=== PATIENT | male | born 1990 | race Hispanic/Latino ===

== ENCOUNTER 2018-02-10 01:06 | Inpatient (IN) | payer BC ==
[2018-02-10] MEDS ORDERED: Ketorolac Tromethamine 30 MG/ML VIAL ONE (02:37)
[2018-02-10 03:09] LABS: #Lymphocytes 0.9 thou/uL (1.20-3.40); #Monocytes 0.3 thou/uL (0.11-0.59); #Neutrophils 4.2 thou/uL (1.40-6.50); %Basophils 0.6 % (0.0-1.0); %Eosinophils 0.3 % (0.0-10.0); %Lymphocytes 17.3 % (21.0-51.0); %Monocytes 5.3 % (0.0-10.0); %Neutrophils 76.5 % (42.0-75.0); Hemoglobin 12.1 g/dL (14.0-18.0); Mean Corpuscular HGB CONC 34.5 g/dL (32.0-36.0); Mean Corpuscular Hemoglobin 28.5 pg (27.0-31.0); Mean Corpuscular Volume 82.7 fL (78.0-98.0); Platelet Count 324 thou/uL (130-400); Red Blood Cell (RBC) Count 4.24 mill/uL (4.70-6.10); White Blood Cell (WBC) Count 5.4 thou/uL (4.8-10.8)
[2018-02-10] MEDS ORDERED: cefTRIAXone\\ROCEPHIN 2 GM VIAL ONE (03:19)
[2018-02-10] MEDS ORDERED: Sodium Chloride 0.9% 1,000 ML IV SCH (05:57)
[2018-02-10] MEDS ORDERED: Ondansetron PF 4 MG/2 ML Vial IVP PRN ×2 (05:57→07:16)
[2018-02-10] MEDS ORDERED: Acetaminophen 325 MG TAB PO PRN (05:57)
[2018-02-10] MEDS ORDERED: Ondansetron ODT 4 MG TAB SL PRN (05:57)
[2018-02-10] MEDS ORDERED: Zolpidem Tartrate 5 MG TAB PO PRN (07:16)
[2018-02-10] MEDS ORDERED: Bisacodyl 5 MG TAB PO PRN (07:16)
[2018-02-10] MEDS ORDERED: Loperamide HCl 2 MG CAP PO PRN (07:16)
[2018-02-10] MEDS ORDERED: Sodium Chloride 0.65% Nasal 44 ML BOT EA NARE PRN (07:16)
[2018-02-10] MEDS ORDERED: Calcium Carbonate 500 MG ChewTAB PO PRN (07:16)
[2018-02-10] MEDS ORDERED: HYDROcodone/Acetaminophen 5/325 mg Tablet PO PRN (07:16)
[2018-02-10] MEDS ORDERED: Diabetic Tussin 200 MG/10 ML UDCUP PO PRN (07:16)
[2018-02-10] MEDS ORDERED: Artificial Tear Sol 15 ML BOT EA EYE PRN (07:16)
[2018-02-10] MEDS ORDERED: Senokot S 8.6-50 MG TAB PO PRN (07:16)
[2018-02-10] MEDS ORDERED: Eucerin (Mineral Oil/Petrolatum,White) 30 gm Jar TOP PRN (07:16)
[2018-02-10] MEDS ORDERED: Cepastat Lozenges 1 LOZ PO PRN (07:16)
[2018-02-10] MEDS ORDERED: Loratadine 10 MG TAB PO PRN (07:16)
[2018-02-10] MEDS ORDERED: Ondansetron ODT 4 MG TAB PO PRN (07:16)
[2018-02-10] MEDS ORDERED: Bisacodyl 10 MG SUPP PR PRN (07:16)
[2018-02-10] MEDS ORDERED: hydrALAZINE 20 MG/ML VIAL SLOW IVP PRN (07:16)
[2018-02-10] MEDS ORDERED: PHARMACY TO DOSE VANCOMYCIN IVPB PRN (07:18)
[2018-02-10] MEDS: guaiFENesin ER 600 MG TAB PO SCH ×2 (08:34→20:48)
[2018-02-10] MEDS: Sodium Chloride 0.9% 1,000 ML IV SCH ×2 (08:41→16:02)
[2018-02-10 08:52] LABS: Anion Gap 15 mmol/L (10-20); BUN (Urea Nitrogen) 6 mg/dL (8.9-20.6); Calc. Creatinine Clearance 0 mL/min (70-130); Calcium 8.5 mg/dL (7.8-10.44); Carbon Dioxide 22 mmol/L (22-29); Chloride 106 mmol/L (98-107); Estimated GFR-MDRD Greater than 90; Glucose 158 mg/dL (70-105); Potassium 3.6 mmol/L (3.5-5.1); Sodium 139 mmol/L (136-145)
[2018-02-10 08:57] VITALS: BMI 47.0
[2018-02-10] MEDS ORDERED: Dextrose 50% Abboject 50 ML SYRINGE SLOW IVP PRN (09:50)
[2018-02-10] MEDS ORDERED: Dextrose 5% in Water 1,000 ML IV PRN (09:50)
[2018-02-10] MEDS: Acetaminophen 325 MG TAB PO PRN ×3 (09:56→19:07)
[2018-02-10] MEDS: Enoxaparin Sodium 40 MG/0.4 ML SYRINGE SC SCH (09:57)
[2018-02-10] MEDS: Famotidine 20 MG TAB PO SCH ×2 (09:57→20:48)
--- NOTE | 2018-02-10 10:06 | RAD ---
CHEST 2 VIEWS: HISTORY: Fever. COMPARISON: None. FINDINGS: There is a right basilar airspace opacity. Atelectasis left lung base. No pneumothorax. IMPRESSION: Right lower lobe pneumonia with a layering effusion. Followup after treatment recommended. POS: [facility]
--- NOTE | 2018-02-10 10:27 | HP ---
PRIMARY CARE PHYSICIAN: Dr. Jd Burden. REASON FOR ADMISSION: Post-influenza pneumonia. HISTORY OF PRESENT ILLNESS: A 27-year-old male who has underlying history of morbid obesity, hyperte nsion, dyslipidemia, diabetes, who presented to the emergency room last night with complaint of high grade fever, chills, body ache, chest congestion. The patient reports that last week on Monday, he was in [place], at that time, he started feeling sick. Initially, his symptom was upper respira tory in nature. His symptoms, he was controlling with [id number] medication, but he was not fe eling any better and that is why he went to local urgent care on Monday. They checked his flu scree n, but the patient does not have any complete clue about result, but he was given Tamiflu. The patie nt was taking medication as prescribed, but he was not feeling better and he was having high grade fe sydnie and chills. He was having chest congestion. Because of cough, he was having headache. Because of cough, he was having chest pain and back pain. He was also feeling very weak and tired and that i s why finally he decided last night to come to the emergency room. In the emergency room, he was afe brile. He appeared sick. His chest x-ray showed infiltration. The patient was given broad spectrum antibiotic therapy with vancomycin and Rocephin as well as IV fluid, Toradol 30 mg was given. Subse quently, the patient was admitted as a full admission to medical floor. This morning when I saw at that time, the patient was having fever of 101.4. He appeared sick. He w as tachycardic. He was having cough with scant amount of sputum. He did not have any hemoptysis. H e denies any lower extremity edema, calf tenderness, pleurisy. He denies any orthopnea, PND. He den ies any similar illness in the past. He denies any flu vaccination this year. He never had this typ e of problem in past. He denies any chronic lung condition. REVIEW OF SYSTEMS: The following complete review of systems was negative, unless otherwise mentioned in the HPI or below: Constitutional: Weight loss or gain, ability to conduct usual activities. Skin: Rash, itching. Eyes: Double vision, pain. ENT/Mouth: Nose bleeding, neck stiffness, pain, tenderness. Cardiovascular: Palpitations, dyspnea on exertion, orthopnea. Respiratory: Shortness of breath, wheezing, cough, hemoptysis, fever or night sweats. Gastrointestinal: Poor appetite, abdominal pain, heartburn, nausea, vomiting, constipation, or diarr hea. Genitourinary: Urgency, frequency, dysuria, nocturia. Musculoskeletal: Pain, swelling. Neurologic/Psychiatric: Anxiety, depression. Allergy/Immunologic: Skin rash, bleeding tendency. Please see my HPI for pertinent positive and negative. All other review of systems reviewed and nega tive except as mentioned in the HPI. PAST MEDICAL HISTORY: Morbid obesity with body mass index 47, diabetes type 2, hypertension, dyslipi demia. PAST SURGICAL HISTORY: Appendicectomy, tonsillectomy. PAST PSYCHIATRIC HISTORY: Reviewed and negative. SOCIAL HISTORY: The patient drinks alcohol occasionally and socially. He denies any smoking. He de nies any other illicit drug abuse. He is working in [employer]. FAMILY HISTORY: Patient denies any family history of coronary artery disease, stroke or cancer. EMERGENCY ROOM COURSE: Patient was given vancomycin, Rocephin, IV fluid, and Toradol. ALLERGIES: No known drug allergy. CURRENT HOME MEDICATIONS: As per emergency room, the patient is on Tamiflu 75 mg twice daily, metfor min 500 mg p.o. b.i.d., pravastatin 10 mg p.o. daily, Actos 15 mg p.o. daily, lisinopril 10 mg p.o. d aily, trazodone 50 mg p.o. at bedtime. All above-mentioned medication has not been verified because this is based on his recall and ER record, but patient does not have any medication with him and that is why we will verify it later on. PHYSICAL EXAMINATION: VITAL SIGNS: Temperature of 101.4, blood pressure 136/83, pulse 104, respiratory rate 20, saturation 96% on 2 liters oxygen, weight 147 kilograms. GENERAL: Patient is currently alert, awake, appears ill appearing. HEENT: Head: Normocephalic, atraumatic. Eyes: Pupils round, reactive to light. No nystagmus. Ex traocular muscle movement is intact. NECK: Supple, no JVD, no thyromegaly, no carotid bruit. LUNGS: Because of morbid obesity, difficult to assess any rales or wheezing, but coarse breath sound noted. No accessory muscles of respiration in use. No gross rhonchi heard at this point. CARDIAC: S1, S2 appears regular, tachycardia, no murmur, no gallop, no rub. ABDOMEN: Morbid obesity present. Bowel sounds present, nontender, nondistended. No organomegaly, n o mass, no suprapubic tenderness. BACK: Unremarkable, no CVA tenderness. EXTREMITIES: Upper extremity: Passive movement of all joints are normal. Lower extremities: No ed martha. Good distal pulsation, no calf tenderness. SKIN: No skin rash. HEMATOLOGICAL: No lymphadenopathy. PSYCHIATRIC: Normal affect. NEUROLOGIC: Nonfocal examination. SIGNIFICANT LABORATORY DATA: Chest x-ray showing multilobar infiltration based on my review. CBC: WBC 5.4, hemoglobin 12.1, platelets 324. BMP shows sodium 139, potassium 3.6, BUN 6, creatinin e 0.60, glucose 158, calcium 8.5. CK 176. Lactic acid 1.3. ASSESSMENT AND PLAN: 1. Community-acquired pneumonia, suspecting Streptococcus, underlying Staph infection cannot be enti rely excluded given recent flu-like illness. At this point, we will check respiratory virus panel. We will continue with broad spectrum antibiotic therapy with Rocephin 1 gram q.24 hours, Levaquin 750 mg daily, and vancomycin as per pharmacy adjusted dose, Mucinex 600 mg twice daily and DuoNeb therap y q.6 hourly p.r.n. and symptomatic treatment. 2. Sepsis. The patient meets sepsis with systemic inflammatory response syndrome criteria with high grade fever, tachycardia, tachypnea, though his CBC, BMP appears normal, but patient has underlying sepsis secondary to pneumonia. The patient is already on broad spectrum antibiotic therapy. We will continue IV fluid NS at 125 mL per hour. 3. Morbid obesity with a BMI of 47. Dietary education given, weight loss education given. Healthy lifestyle measures discussed with the patient. 4. Diabetes type 2. Once we verify the patient's home medication, then we will start patient's home medication. We will provide diabetic diet and insulin as per sliding scale per protocol. 5. Hypertension. Currently, the patient's blood pressure runs low, so we will hold on antihypertens jerry medication and we will verify his home medication. 6. Dyslipidemia. After verification of his home medication, we will resume. 7. Deep venous thrombosis prophylaxis. Lovenox 40 mg subcu daily. 8. Gastrointestinal prophylaxis, Pepcid 20 mg p.o. b.i.d. 9. Code status: The patient is FULL CODE. The patient is making his own decision. Disposition plan based on clinical course. We are expecting patient's stay in hospital more than 2 m idnights. Plan of care discussed with the patient and family member at bedside.
[2018-02-10] MEDS: HumaLOG 300 UNITS/3 ML VIAL SC PRN ×3 (12:47→21:06)
[2018-02-10] MEDS ORDERED: traZODone HCl 50 MG TAB PO PRN (15:44)
[2018-02-10] MEDS: metFORMIN 500 MG TAB PO SCH (20:48)
[2018-02-10] MEDS: Pravastatin Sodium 40 MG TAB PO SCH (20:50)
[2018-02-11] MEDS: cefTRIAXone\\ROCEPHIN 1 GM in Sodium Chloride 0.9% 100 ML IVPB SCH (02:00)
[2018-02-11] MEDS: Sodium Chloride 0.9% 1,000 ML IV SCH ×2 (02:00→07:12)
[2018-02-11] MEDS: HumaLOG 300 UNITS/3 ML VIAL SC PRN ×4 (04:59→20:16)
[2018-02-11 05:31] LABS: Anion Gap 15 mmol/L (10-20); BUN (Urea Nitrogen) 7 mg/dL (8.9-20.6); Calc. Creatinine Clearance 366 mL/min (70-130); Calcium 8.8 mg/dL (7.8-10.44); Carbon Dioxide 19 mmol/L (22-29); Chloride 105 mmol/L (98-107); Estimated GFR-MDRD Greater than 90; Glucose 216 mg/dL (70-105); Potassium 4.1 mmol/L (3.5-5.1); Sodium 135 mmol/L (136-145)
[2018-02-11 06:31] LABS: Band 9 % (5-11); Lymphocytes 14 % (21-51); MDiff Complete? YES; Mean Corpuscular HGB CONC 33.4 g/dL (32.0-36.0); Mean Corpuscular Hemoglobin 28.5 pg (27.0-31.0); Mean Corpuscular Volume 85.2 fL (78.0-98.0); Mean Platelet Volume 9.2 fL (7.4-10.4); Monocytes 8 % (0-10); Neutrophil 68 % (42-75); PLT Morphology Comment Appears Adequate; Platelet Count 194 thou/uL (130-400); RBC Distribution Width 13.3 % (11.5-14.5); Red Blood Cell (RBC) Count 4.21 mill/uL (4.70-6.10); White Blood Cell (WBC) Count 5.3 thou/uL (4.8-10.8)
[2018-02-11] MEDS: Lisinopril 10 MG TAB PO SCH (08:10)
[2018-02-11] MEDS: Pioglitazone HCl 45 MG TAB PO SCH (08:10)
[2018-02-11] MEDS: Famotidine 20 MG TAB PO SCH ×2 (08:10→20:14)
[2018-02-11] MEDS: guaiFENesin ER 600 MG TAB PO SCH ×2 (08:10→20:15)
[2018-02-11] MEDS: Enoxaparin Sodium 40 MG/0.4 ML SYRINGE SC SCH (08:10)
[2018-02-11] MEDS: metFORMIN 500 MG TAB PO SCH ×2 (08:10→20:15)
[2018-02-11 08:40] LABS: ALT (SGPT) 41 U/L (8-55); AST (SGOT) 30 U/L (5-34); Albumin 3.4 g/dL (3.5-5.0); Alkaline Phosphatase 128 U/L (40-150); Bilirubin, Direct 0.1 mg/dL (0.1-0.3); Bilirubin, Total 0.3 mg/dL (0.2-1.2); Protein, Total 7.1 g/dL (6.0-8.3)
--- NOTE | 2018-02-11 10:43 | PDOC.PN ---
- Subjective Encounter Start Date: 02/11/18 Encounter Start Time: 09:30 -: old records requested/rev has cough, less dyspnea, fever is now improving Patient seen and examined. No new complaints. No overnight events - Objective Resuscitation Status: Resuscitation Status FULL:Full Resuscitation MAR Reviewed: Yes Vital Signs & Weight: Vital Signs (12 hours) Temp Pulse Resp BP BP Pulse Ox 02/11/18 08:10 125/82 02/11/18 07:17 98.6 F 88 16 125/82 95 02/11/18 04:00 97.8 F 74 18 123/80 95 Weight Weight 308 lb 14.4 oz Result Diagrams: 02/11/18 04:17 02/11/18 04:17 Additional Labs: Accuchecks 02/11/18 02/10/18 02/10/18 04:58 20:48 16:45 POC Glucose 213 H 285 H 179 H 02/10/18 02/10/18 14:44 11:21 POC Glucose 147 H 270 H Phys Exam - Physical Examination Constitutional: NAD HEENT: PERRLA, moist MMs, sclera anicteric Neck: no JVD, supple Respiratory: no wheezing, no rales, no rhonchi Cardiovascular: RRR, no significant murmur, no rub Gastrointestinal: soft, non-tender, no distention, positive bowel sounds morbid obesity limiting exam Musculoskeletal: no edema, pulses present Neurological: non-focal, normal sensation, moves all 4 limbs Lymphatic: no nodes Psychiatric: normal affect, A&O x 3 Skin: no rash, normal turgor Dx/Plan (1) Adenovirus infection Status: Acute (2) Community acquired bacterial pneumonia Code(s): J15.9 - UNSPECIFIED BACTERIAL PNEUMONIA Status: Acute Comment: post viral, suspecting strep pneumo, vs GPC (3) Sepsis Code(s): A41.9 - SEPSIS, UNSPECIFIED ORGANISM Status: Acute (4) Diabetes type 2, controlled Code(s): E11.9 - TYPE 2 DIABETES MELLITUS WITHOUT COMPLICATIONS Status: Chronic (5) Dyslipidemia Code(s): E78.5 - HYPERLIPIDEMIA, UNSPECIFIED Status: Chronic (6) Hypertension Code(s): I10 - ESSENTIAL (PRIMARY) HYPERTENSION Status: Chronic (7) Morbid obesity with BMI of 45.0-49.9, adult Code(s): E66.01 - MORBID (SEVERE) OBESITY DUE TO EXCESS CALORIES; Z68.42 - BODY MASS INDEX (BMI) 45.0-49.9, ADULT Status: Chronic - Plan cont current plan of care, plan discussed w/ family, continue antibiotics * today will continue same broad spectrum antibiotic, if stable by tomorrow then will consider narrow down antibiotic spectrum * medication reviewed as below * symptomatic treatment * follow culture * reduce IVF and then DC later today * ambulate as tolerated. Review of Systems - Review of Systems Constitutional: negative: fever, chills, sweats, weakness, malaise, other Eyes: negative: Pain, Vision Change, Conjunctivae Inflammation, Eyelid Inflammation, Redness, Other ENT: negative: Ear Pain, Ear Discharge, Nose Pain, Nose Discharge, Nose Congestion, Mouth Pain, Mouth Swelling, Throat Pain, Throat Swelling, Other Respiratory: Cough, Shortness of Breath, Sputum. negative: Dry, Hemoptysis, SOB with Excertion, Pleuritic Pain, Wheezing Cardiovascular: negative: chest pain, palpitations, orthopnea, paroxysmal nocturnal dyspnea, edema, light headedness, other Gastrointestinal: negative: Nausea, Vomiting, Abdominal Pain, Diarrhea, Constipation, Melena, Hematochezia, Other Genitourinary: negative: Dysuria, Frequency, Incontinence, Hematuria, Retention , Other Musculoskeletal: negative: Neck Pain, Shoulder Pain, Arm Pain, Back Pain, Hand Pain, Leg Pain, Foot Pain, Other Skin: negative: Rash, Lesions, Adarsh, Bruising, Other - Medications/Allergies Allergies/Adverse Reactions: Allergies Allergy/AdvReac Type Severity Reaction Status Date / Time No Known Drug Allergies Allergy Verified 02/10/18 05:55 Medications: Current Medications Acetaminophen (Tylenol) 650 mg PO Q4H PRN PRN Reason: Headache/Fever/Mild Pain (1-3) Last Admin: 02/10/18 19:07 Dose: 650 mg Hydrocodone Bitart/Acetaminophen ([place] 5/325) 1 tab PO Q4H PRN PRN Reason: Moderate Pain (4-6) Albuterol/Ipratropium (Duoneb) 3 ml NEB [id number] PRN PRN Reason: SOB &/or Wheezing Last Admin: 02/10/18 21:31 Dose: 3 ml Artificial Tears (Tears Renewed 15ml Bottle) 2 drop EA EYE PRN PRN PRN Reason: Dry Eyes Bisacodyl (Dulcolax) 10 mg PO DAILYPRN PRN PRN Reason: Constipation Bisacodyl (Dulcolax) 10 mg GA DAILYPRN PRN PRN Reason: Constipation Calcium Carbonate (Tums) 1,000 mg PO Q4H PRN PRN Reason: Heartburn or Indigestion Dextrose/Water (Dextrose 50%) 25 gm SLOW IVP PRN PRN PRN Reason: Hypoglycemia Enoxaparin Sodium (Lovenox) 40 mg SC 0900 [facility] Last Admin: 02/11/18 08:10 Dose: 40 mg Famotidine (Pepcid) 20 mg PO BID [facility] Last Admin: 02/11/18 08:10 Dose: 20 mg Glucagon (Glucagon) 1 mg IM PRN PRN PRN Reason: Hypoglycemia Guaifenesin (Mucinex) 600 mg PO Q12HR [facility] Last Admin: 02/11/18 08:10 Dose: 600 mg Guaifenesin (Robitussin Sf) 200 mg PO Q4H PRN PRN Reason: Cough Hydralazine HCl (Apresoline) 10 mg SLOW IVP Q4H PRN PRN Reason: SBP > 180 and HR < 70 Ceftriaxone Sodium 1 gm/ (Sodium Chloride) 100 mls @ 200 mls/hr IVPB Q24HR@ 0300 [facility] Last Admin: 02/11/18 02:00 Dose: 100 mls Levofloxacin 750 mg/ Device 150 mls @ 100 mls/hr IVPB Q24HR [facility] Last Admin: 02/11/18 08:09 Dose: 150 mls Vancomycin HCl 2 gm/ Sodium (Chloride) 500 mls @ 250 mls/hr IVPB 0200,1000, 1800 [facility] Last Admin: 02/11/18 02:54 Dose: 500 mls Dextrose/Water (D5w) 1,000 mls @ 0 mls/hr IV .Q0M PRN PRN Reason: Hypoglycemia Sodium Chloride (Normal Saline 0.9%) 1,000 mls @ 75 mls/hr IV .[id number] [facility] Last Admin: 02/11/18 07:12 Dose: Not Given Insulin Human Lispro (Humalog) 0 units SC .MODERATE SLIDING SC PRN PRN Reason: Moderate Correctional Scale Last Admin: 02/11/18 04:59 Dose: 4 unit Insulin Human Lispro (Humalog) 0 units SC .BEDTIME SLIDING SC PRN PRN Reason: Bedtime Correctional Scale Last Admin: 02/10/18 21:06 Dose: 3 unit Lisinopril (Zestril) 10 mg PO DAILY [facility] Last Admin: 02/11/18 08:10 Dose: 10 mg Loperamide HCl (Imodium) 2 mg PO PRN PRN PRN Reason: Diarrhea/Loose Stools Loratadine (Claritin) 10 mg PO DAILYPRN PRN PRN Reason: Sinus Symptoms Metformin HCl (Glucophage) 1,000 mg PO BID [facility] Last Admin: 02/11/18 08:10 Dose: 1,000 mg Methylprednisolone Sodium Succinate (Solu-Medrol) 20 mg IVP Q8HR [facility] Last Admin: 02/11/18 05:20 Dose: 20 mg Mineral Oil/White Petrolatum (Eucerin Cream) 0 gm TOP BIDPRN PRN PRN Reason: Dry Skin Miscellaneous Medication (Pharmacy To Dose) 1 each IVPB PRN PRN PRN Reason: Pharmacy to dose Ondansetron HCl (Zofran Odt) 4 mg PO Q6H PRN PRN Reason: Nausea/Vomiting Ondansetron HCl (Zofran) 4 mg IVP Q6H PRN PRN Reason: Nausea/Vomiting Pioglitazone HCl (Actos) 45 mg PO DAILY [facility] Last Admin: 02/11/18 08:10 Dose: 45 mg Pravastatin Sodium (Pravachol) 60 mg PO HS [facility] Last Admin: 02/10/18 20:50 Dose: 60 mg Senna/Docusate Sodium (Senokot S) 2 tab PO BID PRN PRN Reason: Constipation Sodium Chloride (Ekron Nasal [place] 0.65%) 0 ml EA NARE QIDPRN PRN PRN Reason: Nasal Congestion Throat Lozenges (Cepastat Lozenges) 1 layla PO Q2H PRN PRN Reason: Sore Throat Trazodone HCl (Desyrel) 25 mg PO HSPRN PRN PRN Reason: Insomnia Zolpidem Tartrate (Ambien) 5 mg PO HSPRN PRN PRN Reason: Insomnia
[2018-02-11 10:50] LABS: Vancomycin, Trough 24.1 ug/mL
[2018-02-11 17:29] LABS: Vancomycin, Trough 17.1 ug/mL
[2018-02-11] MEDS: Pravastatin Sodium 40 MG TAB PO SCH (20:14)
[2018-02-12] MEDS: Sodium Chloride 0.9% 1,000 ML IV SCH (00:45)
[2018-02-12] MEDS: cefTRIAXone\\ROCEPHIN 1 GM in Sodium Chloride 0.9% 100 ML IVPB SCH (02:01)
[2018-02-12] MEDS: HumaLOG 300 UNITS/3 ML VIAL SC PRN ×2 (05:43→12:11)
[2018-02-12] MEDS ORDERED: predniSONE 20 MG TAB PO SCH (08:00)
[2018-02-12] MEDS: Pioglitazone HCl 45 MG TAB PO SCH (08:55)
[2018-02-12] MEDS: Lisinopril 10 MG TAB PO SCH (08:56)
[2018-02-12] MEDS: Famotidine 20 MG TAB PO SCH (08:56)
[2018-02-12] MEDS: guaiFENesin ER 600 MG TAB PO SCH (08:56)
[2018-02-12] MEDS: metFORMIN 500 MG TAB PO SCH (08:56)
[2018-02-12] MEDS: Enoxaparin Sodium 40 MG/0.4 ML SYRINGE SC SCH (08:57)
--- NOTE | 2018-02-12 12:13 | DIS ---
PRIMARY CARE PHYSICIAN: Dr. Jd Burden DATE OF ADMISSION: 02/10/2018 DATE OF DISCHARGE: 02/12/2018 DISCHARGE DISPOSITION: Home. PRIMARY DISCHARGE DIAGNOSES: 1. Community-acquired bacterial pneumonia, suspecting Streptococcus. 2. Adenovirus upper respiratory tract infection. 3. Sepsis. SECONDARY DISCHARGE DIAGNOSES: Morbid obesity with body mass index 47, hypertension, dyslipidemia, d iabetes type 2. PRIMARY PROCEDURE/OPERATION: None. RADIOLOGICAL INVESTIGATION: Chest x-ray showed right lower lobe pneumonia. SIGNIFICANT LABORATORY DATA: WBC 5.3, hemoglobin 12.0, platelet 194. LFTs normal. Sodium 135, crea tinine 0.59, calcium 8.8. Blood culture negative. Respiratory virus panel showed adenovirus positiv e. DISCHARGE MEDICATIONS: Levofloxacin 750 mg p.o. daily for 7 days, Mucinex 600 mg twice daily for 7 d ays, prednisone 20 mg p.o. daily for 5 days. Lisinopril 20 mg p.o. daily, metformin 1000 mg p.o. b.i .d., Actos 45 mg daily, pravastatin 80 mg p.o. at bedtime, trazodone 50 mg p.o. at bedtime p.r.n. CONTRAINDICATIONS: None. CODE STATUS: FULL CODE. INPATIENT CONSULTANTS: None. ALLERGIES: No known drug allergy. DISCHARGE PLAN: Post hospital, the patient is instructed to follow up [place] Dr[place] and patient is instructed to repeat chest x-ray upon followup visit with primary care physician t o see resolution of pneumonia. HOSPITAL COURSE: A 27-year-old male with the above-mentioned medical problem who was admitted by me. Please see my HPI for further details. The patient was having upper respiratory infection symptoms and he was trying [id number] medication without any improvement. The patient was brought to e mergency room for increasing fever, cough and shortness of breath. He was found with a right lower l obe pneumonia on x-ray. We checked virus panel and found with adenovirus infection. While in hospit al he was given vancomycin, Rocephin and Levaquin. His culture remained negative and he was afebrile while in hospital. At that point, we discontinued most of the antibiotic therapy except levofloxaci n. I have seen and examined at bedside today. The patient is feeling much better. He has a residual co ugh, but he is afebrile and he is hemodynamically stable. REVIEW OF SYSTEMS: Reviewed with him and negative. His physical examination is completely normal. All new medication prescriptions sent to his pharmacy . The patient is medically stable for discharge today.
[2018-02-12 12:51] VITALS: BP 146/103; TEMP 97.4
== END 2018-02-12 13:10 | disposition home or self-care (01) | DRG 871 ==
LOC: ERS 01:06 → T4-A 03:15
PROVIDERS: ADMIT Hospitalist; ATTEND Hospitalist
DX: A40.9 Streptococcal sepsis, unspecified (principal); J15.4 Pneumonia due to other streptococci; Z68.42 Body mass index [BMI] 45.0-49.9, adult; E66.01 Morbid (severe) obesity due to excess calories; I10 Essential (primary) hypertension; E78.5 Hyperlipidemia, unspecified; E11.9 Type 2 diabetes mellitus without complications; F32.9 Major depressive disorder, single episode, unspecified; F41.9 Anxiety disorder, unspecified; Z79.899 Other long term (current) drug therapy; Z79.84 Long term (current) use of oral hypoglycemic drugs
CPT/HCPCS: 36415; 36416; 71046; 80048; 80076; 80202; 82550; 83605; 85025; 87040; 87633; 94640; 96365; 96367; 96375; J0696; J1650; J1885; J1956; J2920; J3370; J7050; J7506; J7620

== ENCOUNTER 2018-12-21 11:19 | Outpatient (CLI) | payer BC | END 2018-12-21 11:20 | disposition home or self-care (01) | LOC: DTY/OP 11:19 | PROVIDERS: ATTEND Surgery | DX: E66.01 Morbid (severe) obesity due to excess calories (principal) | CPT/HCPCS: 97802 ==

== ENCOUNTER 2019-02-18 14:15 | Outpatient (CLI) | payer BC ==
[2019-02-18 17:10] LABS: #Basophils 0.1 thou/uL (0.0-0.2); #Eosinphils 0.1 thou/uL (0.0-0.7); #Lymphocytes 3.2 thou/uL (1.20-3.40); #Monocytes 0.9 thou/uL (0.11-0.59); #Neutrophils 8.2 thou/uL (1.40-6.50); %Basophils 1.1 % (0.0-1.0); %Eosinophils 0.5 % (0.0-10.0); %Lymphocytes 25.8 % (21.0-51.0); %Monocytes 6.9 % (0.0-10.0); %Neutrophils 65.7 % (42.0-75.0); Hemoglobin 14.2 g/dL (14.0-18.0); Mean Corpuscular HGB CONC 33.8 g/dL (32.0-36.0); Mean Corpuscular Hemoglobin 28.2 pg (27.0-31.0); Mean Corpuscular Volume 83.4 fL (78.0-98.0); Mean Platelet Volume 7.2 fL (7.4-10.4); Platelet Count 380 thou/uL (130-400); Red Blood Cell (RBC) Count 5.03 mill/uL (4.70-6.10); White Blood Cell (WBC) Count 12.5 thou/uL (4.8-10.8)
--- NOTE | 2019-02-18 17:11 | RAD ---
XR Chest Pa Lat STANDARD HISTORY: Preoperative evaluation COMPARISON: 05/07/2018 FINDINGS: The heart size is normal. The lungs are well expanded without focal areas of consolidation, pneumothorax or pleural effusions. IMPRESSION: No radiographic evidence of acute cardiopulmonary process.
[2019-02-18 17:14] LABS: Hemoglobin A1c 8.6 % (4.0-6.0)
[2019-02-18 17:45] LABS: ALT (SGPT) 31 U/L (8-55); AST (SGOT) 16 U/L (5-34); Albumin 4.6 g/dL (3.5-5.0); Alkaline Phosphatase 129 U/L (40-110); Anion Gap 14 mmol/L (10-20); BUN (Urea Nitrogen) 13 mg/dL (8.9-20.6); Bilirubin, Total 0.3 mg/dL (0.2-1.2); Calc. Creatinine Clearance 0 mL/min (70-130); Carbon Dioxide 24 mmol/L (22-29); Chloride 103 mmol/L (98-107); Estimated GFR-MDRD Greater than 90; Globulin 3.5 g/dL (2.4-3.5); Glucose 153 mg/dL (70-105); Potassium 4.2 mmol/L (3.5-5.1); Protein, Total 8.1 g/dL (6.0-8.3); Sodium 137 mmol/L (136-145)
== END 2019-02-18 14:16 | disposition home or self-care (01) ==
LOC: LABBT 14:15
PROVIDERS: ATTEND Surgery
DX: Z01.818 Encounter for other preprocedural examination (principal); E66.01 Morbid (severe) obesity due to excess calories
CPT/HCPCS: 71046; 80053; 83036; 85025; 93005; 93010

== ENCOUNTER 2019-02-18 16:15 | Inpatient (IN) | payer BC ==
[2019-02-18 16:16] VITALS: BMI 49.4
[2019-02-28] MEDS ORDERED: Heparin 5,000 UNITS/ML VIAL ONE (09:38)
[2019-02-28] MEDS ORDERED: Fentanyl 250 MCG/5 ML VIAL ONE (10:38)
[2019-02-28] MEDS ORDERED: Bupivacaine 0.25% HCL 30 ML VIAL ONE ×2 (10:42→11:13)
[2019-02-28] MEDS ORDERED: Lidocaine 1% w/Epinephrine 1:100K 20 ML VIAL ONE (10:42)
[2019-02-28] MEDS ORDERED: PROPOFOL 20 ML ONE (11:58)
[2019-02-28] MEDS ORDERED: Ondansetron HCl/PF 4 MG/2 ML Vial IVP PRN (12:03)
[2019-02-28] MEDS ORDERED: Promethazine HCl 25 MG/ML VIAL IM PRN ×2 (12:03→12:50)
[2019-02-28] MEDS ORDERED: Promethazine HCl 25 MG/ML VIAL SLOW IVP PRN (12:03)
[2019-02-28] MEDS ORDERED: Fentanyl 100 MCG/2 ML VIAL ONE (12:46)
[2019-02-28] MEDS ORDERED: diphenhydrAMINE 50 MG/ML VIAL IVP PRN ×2 (12:50→15:33)
[2019-02-28] MEDS ORDERED: diphenhydrAMINE 25 MG CAP PO PRN (12:50)
[2019-02-28] MEDS ORDERED: Ondansetron PF 4 MG/2 ML Vial IVP PRN (12:50)
[2019-02-28] MEDS ORDERED: Naloxone HCl 0.4 mg/ml Vial IV PRN (12:50)
[2019-02-28] MEDS ORDERED: diphenhydrAMINE 50 MG/ML VIAL IM PRN (12:50)
[2019-02-28] MEDS ORDERED: fentaNYL Citrate/PF 2,000 MCG in Sodium Chloride 0.9% 60 ML IV PRN (12:50)
[2019-02-28] MEDS ORDERED: Zolpidem Tartrate 5 MG TAB PO PRN (12:50)
[2019-02-28] MEDS ORDERED: Promethazine HCl 25 MG/ML VIAL ONE (12:51)
[2019-02-28] MEDS ORDERED: Communication Order-Pharmacy FS SCH (13:00)
[2019-02-28] MEDS ORDERED: Esmolol 100 MG/10 ML VIAL ONE (13:32)
[2019-02-28] MEDS ORDERED: Lidocaine 1% PF 5 ML VIAL ONE (13:32)
[2019-02-28] MEDS ORDERED: Dexamethasone 20 MG/5 ML VIAL ONE (13:32)
[2019-02-28] MEDS ORDERED: Ketorolac Tromethamine 30 MG/ML VIAL ONE (13:32)
[2019-02-28] MEDS ORDERED: Succinylcholine Chloride 20 MG/ML 10 ml SYRINGE FS ONE (13:32)
[2019-02-28] MEDS ORDERED: Ondansetron PF 4 MG/2 ML Vial ONE (13:32)
[2019-02-28] MEDS ORDERED: Glycopyrrolate 0.2 MG/ML 5 ML SYRINGE ONE (13:32)
[2019-02-28] MEDS ORDERED: PROPOFOL 200 MG/20 ML VIAL ONE (13:32)
[2019-02-28] MEDS ORDERED: Rocuronium Bromide 10 MG/ML (10ML VIAL) ONE (13:32)
[2019-02-28] MEDS ORDERED: hydrALAZINE 20 MG/ML VIAL SLOW IVP PRN (15:33)
[2019-02-28] MEDS ORDERED: HumaLOG 300 UNITS/3 ML VIAL SC PRN (15:33)
[2019-02-28] MEDS ORDERED: Dextrose 50% Abboject 50 ML SYRINGE SLOW IVP PRN (15:33)
[2019-02-28] MEDS ORDERED: Dextrose 5% in Water 1,000 ML IV PRN (15:33)
[2019-02-28] MEDS: Ondansetron PF 4 MG/2 ML Vial IVP PRN (17:02)
[2019-02-28] MEDS: Acetaminophen 1,000 MG in Premix Bag 1 BAG IVPB SCH (17:02)
[2019-02-28] MEDS: Sodium Chloride 0.9% 1,000 ML IV SCH (17:06)
--- NOTE | 2019-02-28 17:49 | OP ---
DATE OF PROCEDURE: 02/28/2019 PREOPERATIVE DIAGNOSES: 1. Morbid obesity with a body mass index of 55. 2. Diabetes mellitus. 3. Hypertension. 4. Hyperlipidemia. POSTOPERATIVE DIAGNOSES: 1. Morbid obesity with a body mass index of 55. 2. Diabetes mellitus. 3. Hypertension. 4. Hyperlipidemia. 5. Hiatal hernia. PROCEDURES PERFORMED: 1. Laparoscopic sleeve gastrectomy with Blanchard staple line reinforcements and 38-[place]at[place] bougie. 2. Laparoscopic hiatal hernia repair without fundoplication or mesh. ANESTHESIA: General. ESTIMATED BLOOD LOSS: Minimal. COMPLICATIONS: None. SPECIMENS: Stomach. FINDINGS: Normal postoperative EGD. DESCRIPTION OF PROCEDURE: The patient was taken to the operating room and laid supine on the operating room table. After general anesthetic was obtained, the arms and legs were double strapped to bariatric table. The abdomen was prepped and draped in sterile fashion. Left subcostal 5-mm Optiview trocar was placed in usual fashion without injury. High-flow pneumoperitoneum was obtained. A right subcostal 5-mm port and two 12-mm ports in the abdomen were placed under direct visualization. 5-mm port was placed at the xiphoid and Ludwin was used to raise the liver off the GE junction. Short gastrics were taken down from mid body of stomach to left shea of diaphragm. Left shea, posterior fundus, and angle of His were completely dissected, revealing a hiatal hernia. A circumferential dissection of the esophagus was then performed, pulling the fundus back into the abdominal cavity under no tension. Short gastrics were taken down to a distance of 6 cm proximal to the pylorus. A 38 bougie was brought in and its tip left in the antrum of the stomach. Multiple loads of an echelon stapling device with Blanchard staple line reinforcements were used to perform the sleeve. The first fired up at a distance 6 cm proximal to the pylorus, angled up towards the incisura. Multiple loads were then fired up along the bougie. Stomach was completely transected at the angle of His. Stomach was removed from the left abdominal incision. The posterior crura was closed using 1 Ethibond suture and the tie-knot system. The fascial defect where the stomach was removed was closed using GraNee needle and 0 Vicryl tie. There was no bleeding in the abdomen. There was no bleeding on the staple lines. EGD scope was passed through esophagus and stomach to the level of duodenum without obstruction. Ludwin retractors were removed under direct visualization without injury. All ports were removed without bleeding. Pneumoperitoneum was let down. 4-0 Monocryl and Dermabond were used to close all the skin incisions. The patient was sent to Recovery in stable condition. All instrument counts, needle counts, and lap counts were correct. Job ID: [id number]
[2019-02-28] MEDS: Lisinopril 20 MG TAB PO SCH (20:31)
[2019-02-28] MEDS: Enoxaparin Sodium 40 MG/0.4 ML SYRINGE SC SCH (20:32)
[2019-02-28] MEDS: Promethazine HCl 25 MG/ML VIAL IM PRN (20:38)
[2019-03-01] MEDS: Acetaminophen 1,000 MG in Premix Bag 1 BAG IVPB SCH ×3 (00:22→11:29)
[2019-03-01] MEDS: Sodium Chloride 0.9% 1,000 ML IV SCH ×5 (00:23→20:46)
[2019-03-01] MEDS: Ondansetron PF 4 MG/2 ML Vial IVP PRN ×3 (00:55→18:33)
[2019-03-01] MEDS: Promethazine HCl 25 MG/ML VIAL IM PRN ×2 (02:55→16:29)
[2019-03-01 06:19] LABS: #Lymphocytes 2.6 thou/uL (1.20-3.40); #Monocytes 1.3 thou/uL (0.11-0.59); #Neutrophils 11.4 thou/uL (1.40-6.50); %Basophils 0.2 % (0.0-1.0); %Eosinophils 0.2 % (0.0-10.0); %Lymphocytes 16.8 % (21.0-51.0); %Monocytes 8.3 % (0.0-10.0); %Neutrophils 74.5 % (42.0-75.0); Hemoglobin 12.3 g/dL (14.0-18.0); Mean Corpuscular HGB CONC 33.2 g/dL (32.0-36.0); Mean Corpuscular Hemoglobin 28.1 pg (27.0-31.0); Mean Corpuscular Volume 84.7 fL (78.0-98.0); Mean Platelet Volume 7.4 fL (7.4-10.4); Platelet Count 359 thou/uL (130-400); RBC Distribution Width 13.2 % (11.5-14.5); White Blood Cell (WBC) Count 15.2 thou/uL (4.8-10.8)
[2019-03-01 06:47] LABS: Anion Gap 15 mmol/L (10-20); BUN (Urea Nitrogen) 7 mg/dL (8.9-20.6); Calc. Creatinine Clearance 341 mL/min (70-130); Calcium 9.2 mg/dL (7.8-10.44); Carbon Dioxide 21 mmol/L (22-29); Chloride 105 mmol/L (98-107); Estimated GFR-MDRD Greater than 90; Glucose 149 mg/dL (70-105); Potassium 4.3 mmol/L (3.5-5.1); Sodium 137 mmol/L (136-145)
[2019-03-01] MEDS: Lisinopril 20 MG TAB PO SCH ×2 (09:09→20:46)
[2019-03-01] MEDS: Pantoprazole 40 MG VIAL IVP SCH (09:15)
[2019-03-01] MEDS: Hydrocodone-Acetamin 15 ML UDCUP PO PRN ×3 (13:41→22:55)
[2019-03-01] MEDS ORDERED: Fentanyl 100 MCG/2 ML VIAL SLOW IVP PRN ×2 (16:14)
[2019-03-01] MEDS: Acetaminophen 1,000 MG in Premix Bag 1 BAG IVPB PRN (16:29)
[2019-03-01] MEDS: Ketorolac Tromethamine 30 MG/ML VIAL IVP PRN (18:29)
[2019-03-01] MEDS: Enoxaparin Sodium 40 MG/0.4 ML SYRINGE SC SCH (20:46)
[2019-03-02] MEDS: Ketorolac Tromethamine 30 MG/ML VIAL IVP PRN ×2 (00:29→06:49)
[2019-03-02] MEDS: Acetaminophen 1,000 MG in Premix Bag 1 BAG IVPB PRN ×2 (00:29→06:49)
[2019-03-02] MEDS: Sodium Chloride 0.9% 1,000 ML IV SCH ×2 (06:49→09:40)
[2019-03-02 08:03] VITALS: TEMP 97.3
[2019-03-02] MEDS: Lisinopril 20 MG TAB PO SCH (09:37)
[2019-03-02] MEDS: Pantoprazole 40 MG VIAL IVP SCH (09:37)
[2019-03-02] MEDS: Hydrocodone-Acetamin 15 ML UDCUP PO PRN (09:41)
[2019-03-02 11:40] VITALS: BP 118/72
--- NOTE | 2019-03-02 11:59 | DIS ---
DATE OF ADMISSION: 02/28/2019 DATE OF DISCHARGE: 03/02/2019 ADMITTING DIAGNOSES: 1. Morbid obesity. 2. Hiatal hernia. DISCHARGE DIAGNOSES: 1. Morbid obesity. 2. Hiatal hernia. PROCEDURES: Laparoscopic sleeve gastrectomy, hiatal hernia repair by Dr. Castro without complication. CONDITION ON DISCHARGE: Improved. STAFF: Josef Castro MD HOSPITAL COURSE: On postop day 1, the patient had persistent nausea, unable to tolerate the liquids. On postop day #2, he is doing much better. He is discharged to home. He will follow up with me in 2 weeks. Prescriptions for Lortab Elixir, Protonix, and Zofran already sent over to his pharmacy. Job ID: [id number]
== END 2019-03-02 11:41 | disposition home or self-care (01) | DRG 621 ==
LOC: SURG A 02-28 08:39 → SJJU 02-28 15:23
PROVIDERS: ADMIT Surgery; ATTEND Surgery
PROC: 0BQT4ZZ Repair Diaphragm, Percutaneous Endoscopic Approach (ICD-10-PCS; principal; 2019-02-28)
PROC: 0DB64Z3 Excision of Stomach, Percutaneous Endoscopic Approach, Vertical (ICD-10-PCS; 2019-02-28)
PROC: 0DJ08ZZ Inspection of Upper Intestinal Tract, Via Natural or Artificial Opening Endoscopic (ICD-10-PCS; 2019-02-28)
DX: E66.01 Morbid (severe) obesity due to excess calories (principal); Z68.42 Body mass index [BMI] 45.0-49.9, adult; I10 Essential (primary) hypertension; E78.5 Hyperlipidemia, unspecified; E11.9 Type 2 diabetes mellitus without complications; K44.9 Diaphragmatic hernia without obstruction or gangrene; R11.0 Nausea
CPT/HCPCS: 36415; 36416; 80048; 85025; 88307; 88312; 94760; C9113; J0131; J0690; J1100; J1642; J1644; J1650; J1885; J2001; J2405; J2550; J2704; J3010; S0020